=== PATIENT | male | born 1955 | race Caucasian/White ===

== ENCOUNTER → 2024-06-27 08:15 | Outpatient (REF) | payer MEDICARE, SELFPAY | LOC: HWRCS 08:15 | PROVIDERS: ATTENDING PHYSICIAN Internal Medicine Cardiovascular Disease; FAMILY PHYSICIAN Family Medicine | DX: I10 Essential (primary) hypertension (principal) | CPT/HCPCS: 93306 ==

== ENCOUNTER → 2025-06-25 07:04 | Outpatient (REF) | payer MEDICARE, SELFPAY | LOC: HWRCS 07:04 | PROVIDERS: ATTENDING PHYSICIAN Internal Medicine Cardiovascular Disease; FAMILY PHYSICIAN Family Medicine | DX: I10 Essential (primary) hypertension (principal); I42.1 Obstructive hypertrophic cardiomyopathy; Z95.2 Presence of prosthetic heart valve | CPT/HCPCS: 93306 ==